=== PATIENT | female | born 1975 | race Caucasian/White ===

== ENCOUNTER → 2021-07-16 03:59 | Outpatient (CLI) | payer OTHER, SELFPAY ==
[2021-07-16 18:30] LABS: SARS-CoV-2 RNA PCR Negative
== END ==
PROVIDERS: PCP Family Medicine; Visit Provider Plastic Surgery
DX: Z01.812 Encounter for preprocedural laboratory examination (principal); Z20.822 Contact with and (suspected) exposure to COVID-19
CPT/HCPCS: 36415; 80048; C9803; U0003; U0005

== ENCOUNTER 2021-07-16 09:24 | Outpatient (CLI) | payer OTHER, SELFPAY ==
[2021-07-16 10:20] LABS: Anion Gap 4 mmol/L (8-16); Blood Urea Nitrogen 23 mg/dL (7-17); Calcium 9.6 mg/dL (8.4-10.2); Carbon Dioxide 29 mmol/L (22-30); Chloride 106 mmol/L (98-107); Estimated Glomerular Filt Rate > 60; Glucose 109 mg/dL (65-110); Potassium 4.6 mmol/L (3.4-5.0); Sodium 139 mmol/L (137-145)
== END 2021-07-16 09:25 | disposition home or self-care (01) ==
PROVIDERS: Anesthesiology; PCP Family Medicine; Visit Provider Plastic Surgery
DX: Z01.818 Encounter for other preprocedural examination (principal); E11.9 Type 2 diabetes mellitus without complications
CPT/HCPCS: 36415; 80048

== ENCOUNTER 2021-07-19 04:05 | Day surgery (SDC) | payer OTHER, SELFPAY ==
[2021-07-13 15:51] VITALS: BMI 36.6
[2021-07-19] MEDS: LACTATED RINGERS 1,000 ML 30 ML IV CONT (06:40)
[2021-07-19 06:41] LABS: Glucose Point of Care 122 mg/dl (65-105)
--- NOTE | 2021-07-19 06:45 | WPDANESEPPF ---
Anes - Initial Pre Proc Eval Procedure: Operation Date: 07/19/21 07:30 Proposed Procedures p Right Open Carpal Tunnel Release, Inject Right Lateral Epicondyle - Delvin Lagunas MD Date/Time: 07/19/21 06:45 Surgeon: Delvin Lagunas MD Pre Op Diagnosis: rt carpal tunnel syndrome,rt lateral epicondylitis Patient Data Age: 46 Gender: F Height: 1.65 m Weight: 99.79 kg Allergies Allergy/AdvReac Type Severity Reaction Status Date / Time adhesive tape AdvReac Mild TAPE BURN Verified 07/19/21 06:13 Home Medications Medication Instructions Recorded Confirmed Type amitriptyline 25 mg PO HS 07/13/21 07/19/21 History atorvastatin 40 mg PO HS 07/13/21 07/19/21 History cyclobenzaprine 10 mg PO TID PRN 07/13/21 07/19/21 History fluconazole 100 mg PO DAILY 07/13/21 07/19/21 History gemfibrozil 600 mg PO BID 07/13/21 07/19/21 History glimepiride 4 mg PO DAILY 07/13/21 07/19/21 History losartan 50 mg PO DAILY 07/13/21 07/19/21 History metformin 500 mg PO BID 07/13/21 07/19/21 History nystatin 1 applic TOPICAL BID PRN 07/13/21 07/19/21 History omeprazole 20 mg PO BID 07/13/21 07/19/21 History pioglitazone 30 mg PO DAILY 07/13/21 07/19/21 History Laboratory Tests 07/19/21 06:39 POC Capillary Glucose 122 mg/dl H mg/dl (65-105) Patient hx anesthesia problems: none Family hx anesthesia problems: none PMFSH Past Medical History Medical History (Updated 07/19/21 @ 06:45 by Tod Benoit MD) Diabetes Hyperlipidemia Obesity Surgical History Surgical History (Updated 07/19/21 @ 06:46 by Tod Benoit MD) H/O lumbosacral spine surgery Social History Social History Smoking packs per day: 0.5 Smoking cigarettes per day: 10.0 Years smoked: 30 Smoking pack-years: 15.00 Smoking status: Current every day smoker Tobacco type: cigarettes Second hand tobacco smoke exposure: Yes Alcohol intake: never Substance use: current Substance use type: marijuana Other substance usage details: DAILY Last use: 07/13/2021 Living arrangements: alone Spiritual care concerns: No Anes - Eval Final PreProcedure Day of Procedure 07/19/21 06:45 Patient weight: obese Heart: regular rate and rhythm Lungs: clear to auscultation Airway: Mallampati scale class II Neurological: alert and oriented Last oral intake: >/= 8 hours ASA classification: III Emergent: no Anesthetic plan: proceed Anesthesia type and monitoring: general Informed Consent: The patient's anesthetic plan and its attendant risks and benefits were discussed with the patient/family/POA. Questions were solicited and answers provided to the satisfaction of the patient/family/POA.
[2021-07-19 07:08] VITALS: BP 165/71; PULSE 92; TEMP 36; O2SAT 100
--- NOTE | 2021-07-19 07:15 | WPDHPUPDATE1 ---
History and Physical Update Update Date/Time: 07/19/21 07:15 History and Physical has been reviewed, including an updated exam of the patient. There are NO changes in the patient's condition. Risks, benefits, and alternatives have been discussed and questions answered. Patient agrees to proceed with procedure.
[2021-07-19] MEDS: BETAMETHASONE SOD PHOS/ACETATE 30 MG/5 ML VIAL 6 MG XX (07:48)
[2021-07-19 07:55] VITALS: BP 136/54; PULSE 89; RESP 16; O2SAT 97
--- NOTE | 2021-07-19 08:03 | PM.OP ---
Procedure Note - Brief Procedure Note - Brief Date of procedure: 07/19/21 Pre-op diagnosis: rt carpal tunnel syndrome,rt lateral epicondylitis Post-op diagnosis: same Procedure performed: Right open carpal tunnel release and injection betamethasone to the right lateral epicondyle Anesthesia: MAC Surgeon: Delvin Lagunas MD Estimated blood loss (mL): 0 Tourniquet time (min): 4 Drains: No Packing: No Pathology: none sent Complications: No immediate complications Condition: stable Disposition: same day
--- NOTE | 2021-07-19 08:07 | W.PM.PROC2 ---
Procedure Note - Detailed Date of Procedure 07/19/21 Pre-op Diagnosis rt carpal tunnel syndrome,rt lateral epicondylitis Post-op Diagnosis same Procedure Performed Right open carpal tunnel release and injection of steroid to the right lateral epicondyle Surgeon Delvin Lagunas MD Anesthesia MAC Description of Procedure The 2 sites were marked on the patient in the holding area. She was taken to the operating room and placed supine on the operating table. Time-out was held and confirmed. She was given IV sedation. The extremity was prepped and draped in usual fashion. The site was remarked on the palm and locally infiltrated with 1% lidocaine with epinephrine. The tourniquet was inflated to 250 mmHg. The incision was made in the palm as marked and dissection was carried bluntly through the subcutaneous tissue to the palmar fascia. This and the carpal ligament were incised the 15. Blade. Under 3 point retraction the ligament was visualized and divided distally and proximally for complete release. There was no unusual anatomy noted. The skin was closed with interrupted 5 0 nylon suture and the tourniquet was released. The elbow was exposed in the lateral epicondyle of prepped with alcohol. 1 milliliter of betamethasone 5 milligrams/milliliter was injected at that site via 25 gauge needle.
[2021-07-19 08:11] LABS: Glucose Point of Care 110 mg/dl (65-105)
[2021-07-19 08:25] VITALS: BP 147/68; PULSE 84; RESP 16
== END 2021-07-19 08:57 | disposition home or self-care (01) ==
PROVIDERS: PCP Family Medicine; Visit Provider Plastic Surgery
PROC: (CPT 64721; principal; 2021-07-19 07:30)
DX: G56.01 Carpal tunnel syndrome, right upper limb (principal); M77.11 Lateral epicondylitis, right elbow; Z79.84 Long term (current) use of oral hypoglycemic drugs; E11.9 Type 2 diabetes mellitus without complications; E78.5 Hyperlipidemia, unspecified; E66.9 Obesity, unspecified; Z68.37 Body mass index [BMI] 37.0-37.9, adult; F17.210 Nicotine dependence, cigarettes, uncomplicated; F12.90 Cannabis use, unspecified, uncomplicated
CPT/HCPCS: 64721; 20551; 82948; A9270; J0702; J2250; J2704; J3010; J7120